=== PATIENT | female | born 2000 | race Caucasian/White ===

== ENCOUNTER 2020-07-14 21:19 | Emergency (ER) | payer OTHER ==
[~2020-07-14 21:19] MED LIST: BACTRIM DS TAB1 EACH PO; CEFDINIR300 MG PO; IBUPROFEN800 MG PO; MOTRIN600 MG PO; NORCO 5-325 TA1 EACH PO; ONDANSETRON ODT4 MG SL; VRAYLAR3 MG PO
[2020-07-14 22:59] LABS: BASOPHIL 0.4 % (0-2); BILIRUBIN NEGATIVE (NEGATIVE); BLOOD NEGATIVE Ery/uL (NEGATIVE); CLARITY CLOUDY (CLEAR); COLOR YELLOW (YELLOW); EOSINOPHIL 1.1 % (0-5); GLUCOSE (U) NORMAL (NORMAL); HGB 11.4 g/dl (12.5-16.0); LEUKOCYTES NEGATIVE Leu/uL (NEGATIVE); LYMPHOCYTE 24.4 % (15-48); MCH 28.3 pg (25.0-31.0); MCHC 33.5 g/dL (32.0-36.0); MCV 84.4 fL (78.0-100.0); MPV 12.3 fL (6.0-9.5); NEUTROPHIL 64.8 % (41-80); NITRITE NEGATIVE (NEGATIVE); NRBC 0; PLT 209 K/uL (150-400); PROTEIN NEGATIVE (NEGATIVE); RBC 4.03 M/uL (4.20-5.40); RDW 12.4 % (11.5-14.0); UROBILINOGEN 0.2 mg/dL (0.2-1.0); WBC 10.3 K/uL (4.0-10.5); pH 7.5 (5.0-9.0)
[2020-07-14 23:22] LABS: LACTIC ACID 0.6 mmol/L (0.4-1.9)
[2020-07-14 23:36] LABS: ALBUMIN 3.1 g/dL (3.4-5.0); BILIRUBIN - TOTAL 0.1 mg/dL (0.2-1.0); BUN/CREAT RATIO (CALC) 15.2 RATIO; CREATININE 0.46 mg/dL (0.51-0.95); GLOBULIN (CALCULATION) 4.1 g/dL; POTASSIUM 3.1 mmol/L (3.5-5.1); TOTAL PROTEIN 7.2 g/dL (6.4-8.2)
[2020-07-15] MEDS ORDERED: BENTYL10 MG PO (02:07)
== END 2020-07-15 02:32 | disposition home or self-care (01) ==
LOC: FER 21:19
PROVIDERS: Emergency Medicine
DX: O99.891 Other specified diseases and conditions complicating pregnancy (principal); R10.84 Generalized abdominal pain; O99.282 Endocrine, nutritional and metabolic diseases complicating pregnancy, second trimester; E87.6 Hypokalemia; Z3A.18 18 weeks gestation of pregnancy
CPT/HCPCS: 36415; 80053; 81003; 83605; 83690; 85025; 99284; J7030

== ENCOUNTER 2021-03-14 18:23 | Emergency (ER) | payer OTHER ==
[~2021-03-14 18:23] MED LIST changes: +BENTYL10 MG PO
[2021-03-14 19:30] LABS: AMPHETAMINES NEGATIVE (NEGATIVE); BARBITURATES NEGATIVE (NEGATIVE); ECSTASY (MDMA) NEGATIVE (NEGATIVE); MARIJUANA (THC) NEGATIVE (NEGATIVE); METHADONE NEGATIVE (NEGATIVE); OPIATES NEGATIVE (NEGATIVE); OXYCODONE NEGATIVE (NEGATIVE)
[2021-03-14] MEDS ORDERED: TIVICAY50 MG PO (20:03)
[2021-03-14] MEDS ORDERED: TRUVADA 200 MG1 EACH PO (20:03)
[2021-03-14] MEDS ORDERED: ONDANSETRON ODT4 MG SL (20:03)
[2021-03-14] MEDS ORDERED: VIBRAMYCIN100 MG PO (20:03)
[2021-03-14] MEDS ORDERED: DIFLUCAN150 MG PO (20:03)
[2021-03-17 00:08] LABS: CHLAMYDIA TRACHOMATIS, NAA Negative (Negative); NEISSERIA GONORRHOEAE, NAA Negative (Negative)
[2021-03-17 07:09] LABS: HBSAG SCREEN Negative (Negative); HEP A AB, IGM Negative (Negative); HEP B CORE AB, IGM Negative (Negative); HEP C VIRUS AB <0.1 (0.0-0.9); HIV SCREEN 4TH GENERATION WRFX Non Reactive (Non Reactive)
[2021-03-21 10:11] LABS: 7-AMINOFLUNITRAZEPAM Negative (NEGATIVE); FLUNITRAZEPAM Negative (NEGATIVE)
== END 2021-03-14 20:36 | disposition home or self-care (01) ==
LOC: FER 18:23
PROVIDERS: Emergency Medicine; Emergency Medicine Emergency Medical Services
DX: T74.21XA Adult sexual abuse, confirmed, initial encounter (principal); Z88.6 Allergy status to analgesic agent
CPT/HCPCS: 80074; 80305; 87210; 87389; 87491; 87591; 90471; 90744; 99284; G0481; J0696

== ENCOUNTER 2021-08-26 03:07 | Emergency (ER) | payer OTHER ==
[~2021-08-26 03:07] MED LIST changes: +DIFLUCAN150 MG PO; +TIVICAY50 MG PO; +TRUVADA 200 MG1 EACH PO; +VIBRAMYCIN100 MG PO
[2021-08-26] MEDS ORDERED: VIBRAMYCIN100 MG PO (04:59)
[2021-08-26] MEDS ORDERED: NORCO 5-325 TA1 EACH PO (04:59)
== END 2021-08-26 05:10 | disposition home or self-care (01) ==
LOC: FER 03:07
DX: N61.0 Mastitis without abscess (principal); N63.31 Unspecified lump in axillary tail of the right breast
CPT/HCPCS: 99283